=== PATIENT | female | born 1955 | race African-American/Black ===

== ENCOUNTER 2018-11-11 06:21 | Day surgery (SDC) | payer BC ==
[2018-10-18 17:16] VITALS: BMI 27.9
[2018-11-11] MEDS ORDERED: methylPREDNISolone ACET (DEPO) 40 MG/1 ML VIAL ONE (07:21)
[2018-11-11] MEDS ORDERED: BUPIVACAINE HCL/PF 0.5% (5MG/ML) 10 ML VIAL ONE (07:22)
[2018-11-11] MEDS ORDERED: MIDAZOLAM HCL 2 MG/2 ML SINGLE DOSE VIAL ONE ×2 (08:00)
[2018-11-11] MEDS ORDERED: SUCCINYLCHOLINE CHLORIDE 200 MG/10 ML SYRINGE ONE (08:01)
[2018-11-11] MEDS ORDERED: ONDANSETRON 4 MG/2 ML VIAL ONE (08:02)
[2018-11-11] MEDS ORDERED: EPHEDRINE SULFATE/0.9% NACL/PF 50 MG/10 ML SYRINGE NR ONE (08:02)
[2018-11-11] MEDS ORDERED: DEXAMETHASONE SOD PHOSPHATE 4 MG/1 ML VIAL ONE (08:02)
[2018-11-11] MEDS ORDERED: LIDOCAINE HCL/PF 2% SDV 5ML VIAL ONE (08:25)
[2018-11-11] MEDS ORDERED: IOHEXOL 180 MG/1 ML ML IJ ONE (08:34)
[2018-11-11] MEDS ORDERED: methylPREDNISolone ACET (DEPO) 40 MG/1 ML VIAL IM ONE (08:35)
[2018-11-11] MEDS ORDERED: BUPIVACAINE HCL/PF 0.5% (5MG/ML) 10 ML VIAL IJ ONE ×2 (08:35)
[2018-11-11] MEDS ORDERED: PROPOFOL 20 ML ONE (08:36)
[2018-11-11] MEDS ORDERED: oxyCODONE HCL 5 MG TABLET PO PRN (08:55)
[2018-11-11] MEDS ORDERED: ONDANSETRON 4 MG/2 ML VIAL IVPUSH PRN (08:55)
[2018-11-11] MEDS ORDERED: LACTATED RINGERS SOLUTION 1,000 ML IV SCH (09:00)
[2018-11-11 09:45] VITALS: TEMP 98.2
[2018-11-11 10:21] VITALS: BP 138/66; PULSE 58
--- NOTE | 2018-11-11 10:43 | OP ---
DATE OF OPERATION: 11/11/2018 PREOPERATIVE DIAGNOSIS: Left hip acetabular labral tear. POSTOPERATIVE DIAGNOSIS: Left hip acetabular labral tear. PROCEDURE PERFORMED: Left hip aspiration arthrogram under fluoroscopic guidance and instillation of Depo-Medrol and Marcaine to the left hip. SURGEON: Morales Valle MD R&D LAB TECHNICIAN: None. ANESTHESIA: Lauren Davenport MD, monitored anesthesia care was performed. DESCRIPTION OF PROCEDURE: The patient being brought into the operating room and gently transferred from the stretcher to the OR table with all bony prominences well padded. The left hip was prepared and draped in a sterile fashion. Patient was given intravenous antibiotics and copious irrigation throughout the procedure to minimize risk for infection. A complete risk, benefit, alternative discussion was conducted with the patient, which was inclusive of, but not limited to, infection, bleeding, , paralysis, increased pain, need for repeat surgery. Patient asked questions, understood the procedure, and desired to procedure with surgical treatment. Following sterile preparation and draping of the left hip, an appropriate time-out was conducted, which was inclusive of, but not limited to, site of surgery, type of surgery, anesthesiologist, and surgeon. Following the appropriate time-out, the left hip was examined fluoroscopically. Sterile technique was used throughout the procedure to minimize risk for infection. A 22-gauge spinal needle was introduced into the left hip joint. Small amount of contrast medium nonionic was introduced into the hip joint to identify location of the hip joint, and a solution of Depo-Medrol 80 mg total and 4 mL of Marcaine were instilled into the left hip joint. The needles were withdrawn, and sterile dressings were applied. The patient was then gently awoken from anesthesia without incident and transferred from the operating room to the recovery room in satisfactory condition. There were no intraoperative complications. Renny [id number]
== END 2018-11-11 10:25 | disposition home or self-care (01) ==
LOC: FASU 06:21
PROVIDERS: ATTEND Orthopaedic Surgery
PROC: 3E0U33Z Introduction of Anti-inflammatory into Joints, Percutaneous Approach (ICD-10-PCS; principal; 2018-11-11 08:32)
DX: M24.152 Other articular cartilage disorders, left hip (principal)
CPT/HCPCS: 73502-TC-LT-FY; 82962; 94760